=== PATIENT | male | born 1960 | race Caucasian/White ===

== ENCOUNTER 2021-04-29 16:58 | Inpatient (IN) | payer MEDICAID, OTHER ==
[~2021-04-29] VITALS: Ht 177.8 cm; Wt 60.0 kg
[2021-04-29 18:48] LABS: BASOPHILS % (AUTO) 0.7 % (0.0-2.0); EOSINOPHILS % (AUTO) 1.4 % (1.0-6.0); HEMOGLOBIN 14.1 g/dL (13.5-17.5); LYMPHOCYTES # (AUTO) 0.4 K/uL (1.0-4.8); LYMPHOCYTES % (AUTO) 10.3 % (22.0-44.0); MEAN CORPUSCULAR HEMOGLOBIN 32.1 pg (26.0-34.0); MEAN CORPUSCULAR HGB CONC 34.4 G/dL (31.0-37.0); MEAN CORPUSCULAR VOLUME 94 fL (80-100); MONOCYTES # (AUTO) 0.3 K/uL (0.1-1.0); MONOCYTES % (AUTO) 9.2 % (2.0-9.0); NEUTROPHILS # (AUTO) 2.7 K/uL (1.8-7.7); NEUTROPHILS % (AUTO) 78.4 % (40.0-70.0); RED BLOOD CELL COUNT(AUTO) 4.38 MIL/uL (4.50-5.90); RED CELL DISTRIBUTION WIDTH 14.1 % (11.5-14.5)
[2021-04-29 19:07] LABS: ANION GAP 6 mmol/L (8-16); CALCIUM, TOTAL 8.3 mg/dL (8.8-10.5); CARBON DIOXIDE 31 mmol/L (22-29); CHLORIDE 105 mmol/L (98-107); CREATININE 0.67 mg/dL (0.60-1.30); GLOMERULAR FILTR. RATE CALC > 60 mL/min (>60); GLUCOSE,RANDOM 75 mg/dL (70-110); POTASSIUM 3.9 mmol/L (3.5-5.1); SODIUM SERUM 142 mmol/L (136-145); UREA NITROGEN, BLOOD 16 mg/dL (7-18)
[2021-04-29 19:14] LABS: AMPHET/METH SCREEN,URINE NEGATIVE (NEGATIVE); BARBITURATE SCREEN, URINE NEGATIVE (NEGATIVE); BENZODIAZEPINES SCREEN,URINE NEGATIVE (NEGATIVE); CANNABINOID SCREEN,URINE NEGATIVE (NEGATIVE); COCAINE SCREEN,URINE NEGATIVE (NEGATIVE); METHADONE SCREEN, URINE POSITIVE (NEGATIVE); OPIATE SCREEN,URINE NEGATIVE (NEGATIVE)
[2021-04-29 19:14] LABS: ALANINE AMINOTRANSFERASE 38 U/L (12-78); ALBUMIN 3.6 g/dL (3.4-5.0); ASPARTATE AMINOTRANSFERASE 34 U/L (15-37); BILIRUBIN,TOTAL 0.7 mg/dL (0.1-1.0); TOTAL PROTEIN, SERUM 7.4 g/dL (6.4-8.2)
[2021-04-29 19:17] LABS: PHENCYCLIDINE SCREEN,URINE NEGATIVE (NEGATIVE)
[2021-04-29 19:17] LABS: PLATELET COUNT (AUTO) 79 K/uL (150-450)
[2021-04-29 19:25] LABS: ALKALINE PHOSPHATASE 103 U/L (46-116)
[2021-04-29 20:09] LABS: COVID AG,FIA SOURCE NASAL SWAB
[2021-04-29] MEDS ORDERED: ZOLPIDEM TARTRATE 10 MG TABLET PO PRN (23:30)
[2021-04-29] MEDS ORDERED: LORazepam 2 MG TABLET PO PRN (23:30)
[2021-04-29] MEDS ORDERED: QUEtiapine FUMARATE 100 MG TABLET PO PRN (23:30)
[2021-04-30 01:33] VITALS: BP 136/89
[2021-04-30 01:44] VITALS: BP 136/89
[2021-04-30] MEDS ORDERED: INFLUENZA VIRUS VACCINE QVS 2021-22 (6MO+)/PF 60 MCG/0.5 ML SYRINGE IM. ONE (03:30)
[2021-04-30 08:18] LABS: CHOL/HDL RATIO 2.4 (4.2-7.3)
[2021-04-30 08:42] VITALS: BP 130/78
[2021-04-30] MEDS ORDERED: PROMETHAZINE HCL 25 MG TABLET PO PRN (09:00)
[2021-04-30] MEDS ORDERED: LOPERAMIDE HCL 2 MG CAPSULE PO PRN (09:00)
[2021-04-30] MEDS ORDERED: OLANZapine 5 MG RAPDIS TABLET PO PRN (09:00)
[2021-04-30] MEDS ORDERED: LORazepam 2 MG/ML VIAL IM ONE (09:00)
[2021-04-30] MEDS ORDERED: HydrOXYzine PAMOATE 50 MG CAPSULE PO PRN (09:00)
[2021-04-30] MEDS ORDERED: HALOPERIDOL LACTATE 5 MG/ML VIAL IM ONE (09:00)
[2021-04-30] MEDS ORDERED: MAG HYDROX/AL HYDROX/SIMETH ES 30 ML SUSPENSION UDCUP PO PRN (09:00)
[2021-04-30] MEDS ORDERED: DiphenhydrAMINE HCL 50 MG/ML VIAL IM ONE (09:00)
[2021-04-30] MEDS ORDERED: GuaiFENesin/D-METHORPHAN [SUGAR-FREE] 200-20MG/10 ML SYRUP UDCUP PO PRN (09:00)
[2021-04-30] MEDS ORDERED: TUBERCULIN, PURIFIED PROTEIN DERIVATIVE 5 TU/0.1 ML SYRINGE ID ONE (09:00)
[2021-04-30] MEDS ORDERED: ACETAMINOPHEN 325 MG TABLET PO PRN (09:00)
[2021-04-30 09:01] VITALS: BP 130/78
[2021-04-30] MEDS: MULTIVITAMINS WITH MINERALS, THERAPEUTIC TABLET PO SCH (09:31)
[2021-04-30] MEDS: THIAMINE 100 MG TABLET PO SCH ×3 (09:31→17:00)
[2021-04-30] MEDS: ACAMPROSATE CALCIUM 333 MG DR TABLET PO SCH ×4 (09:31→17:00)
[2021-04-30] MEDS: FOLIC ACID 1 MG TABLET PO SCH (09:32)
[2021-04-30] MEDS: OLANZapine 5 MG RAPDIS TABLET PO SCH ×2 (09:32→13:55)
[2021-04-30] MEDS: OMEGA-3/DHA/EPA/FISH OIL 1,000 MG CAPSULE PO SCH (09:34)
[2021-04-30] MEDS: MAGNESIUM HYDROXIDE SUSPENSION 30 ML UDCUP PO PRN (09:34)
[2021-04-30] MEDS: NICOTINE 21 MG/24 HOUR PATCH TD SCH (09:40)
[2021-04-30] MEDS: METHADONE HCL 10 MG TABLET PO SCH (10:21)
[2021-04-30] MEDS ORDERED: LURASIDONE HCL 20 MG TABLET PO PRN (14:15)
[2021-04-30] MEDS: LURASIDONE HCL 40 MG TABLET PO SCH ×2 (16:24→17:00)
[2021-04-30 16:27] VITALS: BP 117/73
[2021-04-30] MEDS ORDERED: DIVALPROEX SODIUM 500 MG ER TABLET PO SCH (21:00)
[2021-04-30] MEDS ORDERED: MELATONIN 5 MG TABLET PO SCH (21:00)
[2021-05-01 00:40] VITALS: BP 111/70
[2021-05-01 08:07] LABS: HEMOGLOBIN A1C 4.8 % (3.8-5.6)
[2021-05-01 08:15] LABS: CHOL/HDL RATIO 2.4 (4.2-7.3); FREE T4 (FREE THYROXINE) 1.09 ng/dL (0.76-1.46); THYROID STIMULATING HORMONE 3.04 uIU/mL (0.36-3.74)
[2021-05-01 08:26] VITALS: BP 139/82
[2021-05-01] MEDS ORDERED: OLANZapine 5 MG RAPDIS TABLET PO PRN (08:30)
[2021-05-01] MEDS ORDERED: OLANZapine 5 MG RAPDIS TABLET PO SCH (09:00)
[2021-05-01] MEDS: OMEGA-3/DHA/EPA/FISH OIL 1,000 MG CAPSULE PO SCH (09:20)
[2021-05-01] MEDS: MULTIVITAMINS WITH MINERALS, THERAPEUTIC TABLET PO SCH (09:20)
[2021-05-01] MEDS: ACAMPROSATE CALCIUM 333 MG DR TABLET PO SCH (09:20)
[2021-05-01] MEDS: NICOTINE 21 MG/24 HOUR PATCH TD SCH (09:21)
[2021-05-01] MEDS: THIAMINE 100 MG TABLET PO SCH (09:21)
[2021-05-01] MEDS: METHADONE HCL 10 MG TABLET PO SCH (09:22)
[2021-05-01] MEDS ORDERED: DIVA-80 PO (11:52)
[2021-05-01] MEDS ORDERED: MELA5TAB40 PO (11:52)
[2021-05-01] MEDS ORDERED: OMEG-135 PO (11:52)
[2021-05-01] MEDS ORDERED: ACAM333T7 PO (11:52)
[2021-05-01] MEDS ORDERED: OLAN5TAB94 PO (11:52)
[2021-05-01] MEDS: FOLIC ACID 1 MG TABLET PO SCH (12:00)
[2021-05-01] MEDS: MAGNESIUM HYDROXIDE SUSPENSION 30 ML UDCUP PO PRN (12:17)
== END 2021-05-01 13:40 | disposition home or self-care (01) | DRG 750 ==
LOC: EMS 17:00 → B3A 23:00
PROVIDERS: ADMIT Psychiatry & Neurology Psychiatry; ATTEND Psychiatry & Neurology Psychiatry
DX: F25.9 Schizoaffective disorder, unspecified (principal); R45.850 Homicidal ideations; J44.9 Chronic obstructive pulmonary disease, unspecified; Z55.9 Problems related to education and literacy, unspecified; Z87.891 Personal history of nicotine dependence; Z20.822 Contact with and (suspected) exposure to COVID-19
CPT/HCPCS: 80053; 80061; 83036; 84439; 84443; 85025; 86592; 90686; 99285; G0480; J1200; J1630; J2060; Q9967